=== PATIENT | male | born 1955 | race Caucasian/White ===

== ENCOUNTER 2018-07-29 14:34 | Inpatient (IN) | payer OTHER ==
--- NOTE | 2018-07-29 15:04 | EDPHY ---
H & P Stated Complaint: RUQ ABD PAIN N/V SINCE TUESDAY Time Seen by Provider: 07/29/18 15:03 HPI/ROS: CHIEF COMPLAINT: Abdominal pain, vomiting, jaundice HISTORY OF PRESENT ILLNESS: The patient presents to the ED with progressive abdominal pain, vomiting and now jaundice. The patient's symptoms began several days ago. He saw his primary care provider several days ago who felt he simply was having viral gastroenteritis. When the patient developed a jaundice today he was referred to the ED. The patient does complain of abdominal pain primarily in the right upper quadrant. He denies any melena or hematemesis. He denies prior history of abdominal surgery. He denies significant past medical history. The patient reports that his symptoms are moderate in nature. They worsened with palpation and movement. REVIEW OF SYSTEMS: A comprehensive 10 point review of systems is otherwise negative aside from elements mentioned in the history of present illness. Source: Patient - Personal History Current Tetanus Diphtheria and Acellular Pertussis (TDAP): Yes - Medical/Surgical History Hx Asthma: No Hx Chronic Respiratory Disease: No Hx Diabetes: No Hx Cardiac Disease: No Hx Renal Disease: No Hx Cirrhosis: No Hx Alcoholism: No Hx HIV/AIDS: No Hx Splenectomy or Spleen Trauma: No Other PMH: L SHOULDER SURG/R KNEE SURG - Social History Smoking Status: Never smoked - Physical Exam Exam: General Appearance: Alert, no distress Eyes: Icteric ENT, Mouth: Mucous membranes moist Respiratory: There are no retractions, lungs are clear to auscultation Cardiovascular: Regular rate and rhythm Gastrointestinal: Tenderness to palpation in the right upper quadrant Neurological: A&O, normal motor function, normal sensory exam, normal cranial nerves Skin: Warm and dry, no rashes, jaundiced Musculoskeletal: Neck is supple nontender Extremities: symmetrical, full range of motion Psychiatric: Patient is oriented X 3, there is no agitation Constitutional: Initial Vital Signs Temperature (C) 36.4 C 07/29/18 14:38 Heart Rate 77 07/29/18 14:38 Respiratory Rate 17 07/29/18 14:38 Blood Pressure 134/78 H 07/29/18 14:38 O2 Sat (%) 95 07/29/18 14:38 O2 Delivery Mode Room Air Allergies/Adverse Reactions: Sulfa (Sulfonamide Antibiotics) Allergy (Verified 07/29/18 14:38) Home Medications: Medication Instructions Recorded NK [No Known Home Meds] 07/29/18 Medical Decision Making - Diagnostics Imaging Results: Imaging Impressions Abdomen Ultrasound 07/29/18 15:28 Impression: 1. Cholelithiasis with gallbladder completely opacified with sludge and gallstones including calculi lodged in the gallbladder neck, circumferential gallbladder wall thickening, and dilated common bile duct 15 mm, consistent with acute cholecystitis. 2. Pancreas is not well visualized. Findings and recommendations discussed with Emergency Department physician, Beck Keane, at 1623 hour, 07/29/2018. Final report concurs with initial preliminary interpretation. ED Course/Re-evaluation: The patient presents to the ED which jaundice, abdominal pain and vomiting. The patient arrives and is hemodynamically stable. He has no fever or leukocytosis. The patient was noted to be visibly jaundiced. Patient did receive a IV. He received a L of normal saline. He received IV Zofran and 4 mg of morphine. The patient's laboratory studies do demonstrate an elevated bilirubin. The patient was taken for a right upper quadrant ultrasound which demonstrates cholecystitis, gallstones and common bile duct 15 mm in diameter. The patient received IV Unasyn 3gm in the IV. Consultation was made with Dr. Rui Menon from General surgery. He recommends admission to the hospitalist service with GI consultation for ERCP. The patient will need a cholecystectomy after the patient has been seen by GI. Consultation is made with Gastroenterology. The patient will be seen in consultation with Dr. Bynum. He should be npo. Consultation is made with the hospitalist service at 4:50 p.m.. The patient will be admitted by Dr. Salcido. Re-evaluated the patient again at 5:00 p.m.. He is comfortable. Informed of the plan for admission for further workup. Differential Diagnosis: Differential diagnosis considered includes cholangitis, choledocholithiasis, pancreatic cancer, obstructive biliary lesion - Data Points Laboratory Results: Laboratory Results 07/29/18 15:18 07/29/18 15:18 07/29/18 07/29/18 15: 15:18 WBC 8.35 10^3/uL 10^3/uL (3.80-9.50) RBC 4.42 10^6/uL 10^6/uL (4.40-6.38) Hgb 13.5 g/dL L g/dL (13.7-17.5) Hct 39.6 % L % (40.0-51.0) MCV 89.6 fL fL (81.5-99.8) MCH 30.5 pg pg (27.9-34.1) MCHC 34.1 g/dL g/dL (32.4-36.7) RDW 12.6 % % (11.5-15.2) Plt Count 238 10^3/uL 10^3/uL (150-400) MPV 8.8 fL fL (8.7-11.7) Neut % (Auto) 80.8 % H % (39.3-74.2) Lymph % (Auto) 8.3 % L % (15.0-45.0) Cottle % (Auto) 10.4 % % (4.5-13.0) Eos % (Auto) 0.1 % L % (0.6-7.6) Baso % (Auto) 0.2 % L % (0.3-1.7) Nucleat RBC Rel Count 0.0 % % (0.0-0.2) Absolute Neuts (auto) 6.74 10^3/uL H 10^3/uL (1.70-6.50) Absolute Lymphs (auto) 0.69 10^3/uL L 10^3/uL (1.00-3.00) Absolute Monos (auto) 0.87 10^3/uL H 10^3/uL (0.30-0.80) Absolute Eos (auto) 0.01 10^3/uL L 10^3/uL (0.03-0.40) Absolute Basos (auto) 0.02 10^3/uL 10^3/uL (0.02-0.10) Absolute Nucleated RBC 0.00 10^3/uL 10^3/uL (0-0.01) Immature Gran % 0.2 % % (0.0-1.1) Immature Gran # 0.02 10^3/uL 10^3/uL (0.00-0.10) Sodium 133 mEq/L L mEq/L (135-145) Potassium 3.6 mEq/L mEq/L (3.3-5.0) Chloride 96 mEq/L L mEq/L (97-110) Carbon Dioxide 26 mEq/l mEq/l (22-31) Anion Gap 11 mEq/L mEq/L (6-14) BUN 18 mg/dL mg/dL (7-23) Creatinine 0.9 mg/dL mg/dL (0.7-1.3) Estimated GFR > 60 Glucose 110 mg/dL H mg/dL (70-100) Calcium 9.5 mg/dL mg/dL (8.5-10.4) Total Bilirubin 7.2 mg/dL H mg/dL (0.1-1.4) Conjugated Bilirubin 6.0 mg/dL H mg/dL (0.0-0.5) Unconjugated Bilirubin 1.2 mg/dL H mg/dL (0.0-1.1) AST 123 IU/L H IU/L (17-59) ALT 277 IU/L H IU/L (21-72) Alkaline Phosphatase 305 IU/L H IU/L (38-126) Total Protein 6.7 g/dL g/dL (6.3-8.2) Albumin 3.7 g/dL g/dL (3.5-5.0) Lipase 9975 IU/L H IU/L (23-300) Medications Given: Discontinued Medications Sodium Chloride (Ns) 1,000 mls @ 0 mls/hr IV EDNOW ONE; Wide Open PRN Reason: Protocol Stop: 07/29/18 15:29 Last Admin: 07/29/18 15:39 Dose: 1,000 mls Ondansetron HCl (Zofran) 4 mg IVP EDNOW ONE Stop: 07/29/18 15:29 Last Admin: 07/29/18 15:39 Dose: 4 mg Departure - Departure Disposition: [facility] In[facility] Acute Clinical Impression: Choledocholithiasis with acute cholecystitis, Acute gallstone pancreatitis Referrals: EDDA MACIEL [Other] - As per Instructions
[2018-07-29] MEDS ORDERED: NS 1,000 ML IV ONE (15:28)
[2018-07-29] MEDS ORDERED: ONDANSETRON 4 MG/2 ML VIAL IVP ONE (15:28)
[2018-07-29 15:35] LABS: PLATELET COUNT 238 10^3/uL (150-400)
[2018-07-29] MEDS ORDERED: AMPICILLIN/SULBACTAM 3 GM in NS 100 ML IV ONE (16:17)
[2018-07-29] MEDS ORDERED: ONDANSETRON DISINTEGRATING 4 MG TAB PO PRN (17:58)
[2018-07-29] MEDS ORDERED: ONDANSETRON 4 MG/2 ML VIAL IVP PRN (17:58)
[2018-07-29] MEDS ORDERED: PROMETHAZINE HCL 25 MG/ML INJ IVP PRN (17:58)
[2018-07-29] MEDS: NS 1,000 ML IV SCH (18:19)
--- NOTE | 2018-07-29 19:41 | GHP ---
DATE OF ADMISSION: 07/29/2018 HISTORY OF PRESENT ILLNESS: The patient is a pleasant 63-year-old gentleman with no past medical history, who presents to the emergency department with jaundice. He has had some GI upset and abdominal pain over the last couple of days. He saw his primary care physician several days ago. He suggested he had a viral gastroenteritis. He says his abdominal pain is in the right upper quadrant. No melena or signs of lower or upper GI bleeding. Noticing jaundice and came into the emergency department. Imaging revealed a gallbladder full of stones with a dilated common bile duct. He had markedly elevated LFTs. The patient enjoys excellent health and exercise tolerance going for 5-hour hikes without cardiopulmonary symptoms. REVIEW OF SYSTEMS: Complete 10-point review of systems conducted. Negative except as noted in the HPI. PAST MEDICAL HISTORY: None. ALLERGIES: Sulfa. That happened when he was 7 years old. HOME MEDICATIONS: None. FAMILY HISTORY: His father has urine problems and he is in his 90s. SOCIAL HISTORY: He has wine on the weekends. 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 He is a nonsmoker. PHYSICAL EXAMINATION: VITAL SIGNS: Temp 36.4, blood pressure 134/78, pulse 77 , breathing 17 times a minute, 95% on room air. GENERAL: No acute distress. HEENT: Sclerae icteric. Oropharynx clear. Mucous membranes moist. NECK: Supple without lymphadenopathy or JVD. LUNGS: Clear to auscultation bilaterally. HEART: S1, S2. ABDOMEN: Soft, nontender. There is a Butcher sign although the patient has been medicated. LOWER EXTREMITIES: Without edema. Calves nontender. SKIN: Without rash. NEUROLOGIC: Exam is nonfocal. LABORATORY DATA: Sodium 133, potassium 3.6, chloride 96, bicarb 26, BUN 18, creatinine 0.9, glucose 110, bilirubin is 7.2, that is predominantly conjugated. AST 123, ALT 277, alkaline phosphatase 305, lipase is 9975. White count 8, hematocrit 40, platelets 238,000. Abdominal ultrasound shows cholelithiasis with the gallbladder completely opacified with stone and sludge. He has calculi lodged in the gallbladder neck with a circumferential gallbladder wall thickening. Dilated common duct at 15 mm. I discussed the case with Dr. Beck Keane. ASSESSMENT AND PLAN: A 63-year-old gentleman with choledocholithiasis, cholelithiasis, and gallstone pancreatitis. 1. Choledocholithiasis. The patient is n.p.o., received Unasyn. He will receive ERCP in the morning. 2. Cholelithiasis. The patient has a remarkable stone burden in his gallbladder. He needs a cholecystectomy. This will be performed after the ERCP. 3. Cholelithiasis. Unasyn. 4. Pancreatitis. The patient has gallstone pancreatitis. His symptoms are a little bit vague. He certainly does not have severe necrotizing pancreatitis. Make him n.p.o. and follow. 5. Prophylaxis, sequential compression devices for now. Preoperative cardiac evaluation. The patient can achieve greater than 4 METS without cardiopulmonary symptoms to the OR without further workup after intervention. DISPOSITION: Inpatient admission. /[id number]/MODL MTDD
--- NOTE | 2018-07-29 23:07 | GCON ---
DATE OF CONSULTATION: 07/29/2018 REFERRING PHYSICIAN: Todd Boucher MD REASON FOR CONSULTATION: Abdominal pain, elevated liver tests, and jaundice. Dear Dr. Boucher: Thank you very kindly for asking me to evaluate the patient in consultation for a chief complaint of abdominal pain and jaundice. He is a very pleasant and previously healthy 63-year-old male, who had a significant escalation of right-sided and epigastric abdominal pain that had originally began . He was in his usual state of health when he developed nausea, vomiting, and what he thought was a bdominal pain related to a pulled muscle from the severe retching. The event worsened, however, and he saw his doctor on . He was told he might have a viral gastroenteritis, but when he develo ped jaundice, he was brought to the emergency room today. His LFTs are elevated with both cholestasi s and transaminitis, and an ultrasound shows cholelithiasis with stones within the gallbladder neck a nd a dilated common bile duct to 15 mm. I am asked to assist with further evaluation and management. Of note, the patient denies any previous episodes of jaundice. He has had similar biliary colic-type episodes on 2 occasions in April that lasted about 5 days a piece and resolved spontaneously. He den ies any fever, chills, but has been feeling somewhat globally ill. PAST MEDICAL HISTORY: Two episodes of previous biliary colic. No other known problems. PAST SURGICAL HISTORY: Arthroscopic knee surgery and a left rotator cuff repair. MEDICATIONS ON ADMISSION: None. ALLERGIES: Sulfa. FAMILY HISTORY: Negative for pancreatic or biliary disease. 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 He is [place]. No tobacco. No alcohol. No substance a buse. His daughter is a physician in [place]. REVIEW OF SYSTEMS: CONSTITUTIONAL: General malaise, nausea, anorexia. No fever, no chills, no nigh t sweats, no weight loss. HEENT: Denies headache, visual disturbances, rhinorrhea, sore throat, or ear pain. He does note scleral icterus. PULMONARY: No cough or shortness of breath. CARDIOVASCULA R: No chest pain or palpitations. GASTROINTESTINAL: Has been for nausea and bilious vomiting. Gen eralized abdominal pain, but worse in the epigastric and the right side. Denies melena, hematochezia , constipation, or diarrhea. RHEUMATOLOGIC: Denies joint pain, swelling, or warmth. DERMATOLOGIC: Significant for jaundice, but he denies pruritus. NEUROLOGIC: No focal motor weakness, seizures, o r falls. HEMATOLOGIC: No bruising or epistaxis. LYMPH: Denies any adenopathy. PHYSICAL EXAM: VITAL SIGNS: Blood pressure is 114/56 with a pulse of 73, respirations are 16, oxyge nation is 93% on room air, temperature max is 36.8. GENERAL: Jaundice-appearing male but in no acut e distress. Alert, polite, and able to provide his own history. He says he feels much more comforta ble after receiving morphine. HEENT: Normocephalic, atraumatic. Sclerae are anicteric. Oropharynx is clear, but there is palatal jaundice. NECK: Supple. No adenopathy. No carotid bruit. PULMONA RY: Clear to auscultation bilaterally. CARDIOVASCULAR: Regular rate and rhythm without murmur, rub or gallop. GI: The abdomen is tender in the epigastrium and in the right upper quadrant. There is some mild voluntary guarding with deep palpation. No obvious rebound. There is a subtle, but I thi nk real Butcher sign. No ascites. No abdominal bruit. RHEUMATOLOGIC: No joint tenderness, warmth, or swelling. No joint deformity. DERMATOLOGIC: Significant for jaundice. NEURO: Alert to person, place, and time. Cranial nerves normal. Motor nonfocal. DATA: Includes white blood count of 8.3 with a hematocrit of 39.6, platelets are 238. AST is 123, A LT is 277, alkaline phosphatase is 305, total bilirubin 7.2 with a conjugated of 6.0, lipase is 9975, total protein 6.7, albumin 3.7, creatinine 0.9. Sodium 133, potassium 3.6, chloride 96, bicarbonate 26. IMAGING: Includes an abdominal ultrasound on July 29, 2018. This shows cholelithiasis with gallb ladder wall thickening. There are stones lodged in the gallbladder neck. The common bile duct is 15 mm, but without choledocholithiasis noted. The liver is homogeneous without focal lesion. The main portal vein is patent. There is no note of intrahepatic biliary ductal dilatation. The pancreas is not well visualized. IMPRESSION: 1. Acute pancreatitis, highly likely to be gallstone related. 2. Common bile duct obstruction. 3. Elevated liver tests with both cholestasis and transaminitis, likely related to bilirubin obstruc tion and acute cholecystitis. 4. Cholelithiasis, which appears to be complicated by cholecystitis. 5. Nausea with vomiting. RECOMMENDATIONS: 1. N.p.o. 2. Aggressive IV fluid resuscitation. 3. Prophylactic antibiotics. 4. A.m. LFTs and lipase. Will likely need ERCP within the next day, or possibly 2 depending on his clinical progress. If he worsens with his biliary obstruction, and his pancreatitis is failing to im prove, he will need more urgent ERCP. 5. If his liver tests and pancreatitis are improving steadily, we will likely give a short bit of ti me for the pancreatitis to cool down and proceed with ERCP on Tuesday morning. The timing of the ERCP will really be predicated on how he does clinically. 6. He will ultimately need cholecystectomy after clearance of the common bile duct. 7. Other possibilities for biliary obstruction that are not stone related are in the differential, s uch as biliary stricturing or pancreatic malignancy, but I think these are less likely given the clin ica presentation of pain, biliary colic, and the previous episodes in April. The ERCP should also be able to confirm that the problem is choledocholithiasis. If, however, the ERCP is performed and brownlee s not reveal a stone or obvious cause of obstruction, then CT imaging can be considered. Further recommendations to follow. /[id number]/MODL
[2018-07-29] MEDS: AMPICILLIN/SULBACTAM 3 GM in NS 100 ML IV SCH (23:11)
[2018-07-30] MEDS: NS 1,000 ML IV SCH ×3 (00:10→15:16)
[2018-07-30] MEDS: AMPICILLIN/SULBACTAM 3 GM in NS 100 ML IV SCH ×5 (00:10→23:18)
--- NOTE | 2018-07-30 00:13 | PDCONSULT ---
Ste[employer]er Filling Note: Surgery consult 63 y/o male with several day history of abd pain, N/V presented to the ED today and was found to have elevated liver enzymes and jaundice. Ultrasound showed gallstones and dilated CBD and dilated intrahepatic ducts. He has had two similar episodes in the past year that have resolved spontaneously. His pain resolved after receiving morphine in the ED. 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
[2018-07-30 05:24] LABS: PLATELET COUNT 224 10^3/uL (150-400)
[2018-07-30 05:29] LABS: INR 1.1 (0.83-1.16); PROTIME(PATIENT) 14.4 SEC (12.0-15.0)
--- NOTE | 2018-07-30 07:26 | PDMN ---
Medical Necessity Medical necessity: Pt meets inpt criteria per MD order and [facility] [place] M-[id number], Pancreatitis, with Common Duct Stone. 63 y/o admitted w/choledocholithiasis, cholelithiasis complicated by cholecystitis, gallstone pancreatitis. Abd ultrasound shows gallstones w/dilatation of common bile duct/intrahepatic ducts , lipase 9975 on admission, ERCP planned for AM, cholecystectomy pending. Anticipate>2MN for ongoing eval/management of above.
--- NOTE | 2018-07-30 09:22 | HOSPPROG ---
Hospitalist Progress Note Assessment/Plan: 63 yo M w gallstone pancreatitis, cholelithiasis, presumed choledocholithiasis choledocholithiasis: stone not seen but scenario c/w this dx ercp today or tomorrow continue amp/sulbactam pancreatitis: presumed 2/2 PD obstruction from gallstone/edema Npo X ICE CHIPS pain better may be reasonable to wait on ercp cholelithiasis: remarkable stone burden cholecystectomy on this admit hyponatremia: improved proph: scd's Subjective: case d/w dr jackson. less pain. some nausea Objective: Vital Signs Temp Pulse Resp BP Pulse Ox 36.7 C 75 16 102/52 L 95 07/30/18 04:00 07/30/18 08:00 07/30/18 08:00 07/30/18 08:00 07/30/18 08:00 Laboratory Results 07/30/18 05:07 07/30/18 05:07 07/29/18 07/30/18 07/31/18 05:59 05:59 05:59 Intake Total 1852 Balance 1852 PT 14.4 SEC (12.0-15.0) 07/30/18 05:07 INR 1.10 (0.83-1.16) 07/30/18 05:07 - Physical Exam Constitutional: no apparent distress, appears nourished Eyes: PERRL, anicteric sclera Ears, Nose, Mouth, Throat: moist mucous membranes, hearing normal Cardiovascular: regular rate and rhythym, no murmur, rub, or gallop Respiratory: no respiratory distress, no rales or rhonchi Gastrointestinal: No normoactive bowel sounds, No guarding, No rebound, No distension Genitourinary: no bladder fullness, No palacios in urethra Skin: warm, normal color Musculoskeletal: full muscle strength, no muscle tenderness Neurologic: AAOx3 ICD10 Worksheet Patient Problems: Problems Problem Status Onset Acute gallstone pancreatitis Acute Choledocholithiasis with acute cholecystitis Acute
--- NOTE | 2018-07-30 10:51 | SOAPPROG ---
SOAP Progress Note Assessment/Plan: Assessment: 1. RUQ pain 2. GS pancreatitis 3. Biliary obstruction 4. Cholelithiasis with cholecystitis Plan: 1. Ice chips and sips ok 2. Continue Abx coverage 3. AM CBC, CMP, Lipase 4. ERCP tomorrow at 11AM 07/30/18 10:49 Subjective: CC: less abdominal pain. No N/V. No fever. Feels a bit swollen in his hands. Denies SOB Objective: Vital Signs Temp Pulse Resp BP Pulse Ox 36.7 C 75 16 102/52 L 95 07/30/18 04:00 07/30/18 08:00 07/30/18 08:00 07/30/18 08:00 07/30/18 08:00 Laboratory Results 07/30/18 05:07 07/30/18 05:07 07/29/18 07/30/18 07/31/18 05:59 05:59 05:59 Intake Total 1852 Balance 1852 PT 14.4 SEC (12.0-15.0) 07/30/18 05:07 INR 1.10 (0.83-1.16) 07/30/18 05:07 Physical Exam - Physical Exam General Appearance: WD/WN, alert, no apparent distress EENT: normal ENT inspection Neck: supple Respiratory: lungs clear, normal breath sounds Cardiac/Chest: regular rate, rhythm, No systolic murmur Abdomen: normal bowel sounds, non-tender, soft, No distended, No guarding, No rebound Skin: jaundice Lymphatic: no adenopathy Neuro/Psych: normal mood/affect, oriented x 3 ICD10 Worksheet Patient Problems: Problems Problem Status Onset Acute gallstone pancreatitis Acute Choledocholithiasis with acute cholecystitis Acute
--- NOTE | 2018-07-30 15:23 | ASMTCMCOM ---
CM Note CM Note Notes: 63yo male admitted for Jaundice, Choledocholithiasis w/Cholecystitis, Gallstone pancreatitis. Patient lives with his and works at [employer]. To have an ERCP on Tuesday. May not have discharge needs. Date Signed: 07/30/2018 03:21 PM Electronically Signed By:Sandy Tyson LCSW
[2018-07-31 04:51] LABS: PLATELET COUNT 254 10^3/uL (150-400)
[2018-07-31] MEDS: AMPICILLIN/SULBACTAM 3 GM in NS 100 ML IV SCH ×4 (06:59→23:12)
[2018-07-31] MEDS: NS 1,000 ML IV SCH (07:00)
--- NOTE | 2018-07-31 09:14 | HOSPPROG ---
Hospitalist Progress Note Assessment/Plan: #Gallstone pancreatitis/choledocholithiasis -MRCP pending, if neg consider lap choley. ERCP if positive #Hypoglycemia: due to NPO, add D5 #Hyperbilirubinemia: due to #1 #Diet: NPO, add D5 Inpatient admission for IV abx, ERCP, surgery Discussed with Dr. Menon Subjective: min abd pain today Objective: Vital Signs Temp Pulse Resp BP Pulse Ox 36.4 C 72 15 103/58 L 97 07/31/18 07:51 07/31/18 07:51 07/31/18 07:51 07/31/18 07:51 07/31/18 07:51 Laboratory Results 07/31/18 04:25 07/31/18 04:25 07/30/18 07/31/18 08/01/18 05:59 05:59 05:59 Intake Total 1852 1076 Balance 1852 1076 PT 14.4 SEC (12.0-15.0) 07/30/18 05:07 INR 1.10 (0.83-1.16) 07/30/18 05:07 - Time Spent With Patient Time Spent with Patient: greater than 35 minutes Time Spent with Patient: Greater than 35 minutes spent on this patients care, greater than 50% of time spent counseling, educating, and coordinating care regarding the above mentioned plan. - Physical Exam Constitutional: no apparent distress Eyes: PERRL Ears, Nose, Mouth, Throat: moist mucous membranes Cardiovascular: regular rate and rhythym Respiratory: no respiratory distress Gastrointestinal: normoactive bowel sounds, tenderness (min RUQ TTP), No guarding, No rebound, No distension Genitourinary: no bladder fullness Skin: warm Musculoskeletal: full muscle strength Neurologic: AAOx3, CN II-XII Intact Psychiatric: interacting appropriately ICD10 Worksheet Patient Problems: Problems Problem Status Onset Acute gallstone pancreatitis Acute Choledocholithiasis with acute cholecystitis Acute
[2018-07-31] MEDS ORDERED: D50W 25 GM/50 ML SYR IVP PRN (11:53)
[2018-07-31] MEDS ORDERED: D5W NS 1,000 ML IV SCH (12:00)
--- NOTE | 2018-07-31 14:25 | SOAPPROG ---
[facility] Progress Note Assessment/Plan: Assessment: choledocholithiasis/awaiting ERCP-delayed scheduling clinically improved with declining bili Plan: MRCP, if neg consider lap shanita/IOC, if pos await ERCP 07/31/18 14:24 Subjective: had several short attacks of pain yesterday/feeling better today Objective: bili down to 2.8 Vital Signs Temp Pulse Resp BP Pulse Ox 36.4 C 72 15 103/58 L 97 07/31/18 07:51 07/31/18 07:51 07/31/18 07:51 07/31/18 07:51 07/31/18 07:51 Laboratory Results 07/31/18 04:25 07/31/18 04:25 07/30/18 07/31/18 08/01/18 05:59 05:59 05:59 Intake Total 1852 1076 Balance 1852 1076 PT 14.4 SEC (12.0-15.0) 07/30/18 05:07 INR 1.10 (0.83-1.16) 07/30/18 05:07 - Pending Discharge Pending Discharge Within 24 Hours: No Pending Discharge Within 48 Hours: No Physical Exam - Physical Exam EENT: other (resolving scleral icterus) Abdomen: non-tender, soft ICD10 Worksheet Patient Problems: Problems Problem Status Onset Acute gallstone pancreatitis Acute Choledocholithiasis with acute cholecystitis Acute
[2018-07-31] MEDS ORDERED: GLUCAGON HCL 1 MG VIAL ONE (16:14)
[2018-07-31] MEDS ORDERED: IOTHALAMATE MEG (CONRAY) 50 ML VIAL IV ONE (16:14)
[2018-07-31] MEDS ORDERED: fentaNYL 100 MCG/2 ML INJ ONE (16:55)
[2018-07-31] MEDS ORDERED: PROPOFOL/EMULSION 500 MG/50 ML BOTTLE IV ONE (16:56)
[2018-07-31] MEDS ORDERED: INDOMETHACIN 50 MG SUPP PR ONE ×2 (17:01→17:04)
[2018-07-31] MEDS ORDERED: ALBUTEROL 3 ML DEYVIAL IH PRN (17:39)
[2018-07-31] MEDS ORDERED: DEXAMETHASONE 4 MG/ML VIAL IVP PRN (17:39)
[2018-07-31] MEDS ORDERED: fentaNYL 100 MCG/2 ML INJ IVP PRN (17:39)
[2018-07-31] MEDS ORDERED: LABETALOL HCL 5 MG/ML 20 ML MDV IVP PRN (17:39)
[2018-07-31] MEDS ORDERED: MEPERIDINE 25 MG/0.5 ML AMP IVP PRN (17:39)
[2018-07-31] MEDS ORDERED: NALOXONE HCL 0.4 MG/ML INJ IVP PRN (17:39)
[2018-07-31] MEDS ORDERED: LR 500 ML IV PRN (17:39)
--- NOTE | 2018-07-31 17:44 | PDANEPAE ---
ANE History of Present Illness 63 year old male with gallstone pancreatitis for ERCP. ANE Past Medical History - Pulmonary History Hx Oxygen in Use at Home: No Hx Sleep Apnea: No Sleep Apnea Screening Result - Last Documented: Negative - Endocrine History Hx Diabetes: No ANE Review of Systems Review of systems is: negative Review of Systems: ANE Patient History - Allergies Allergies/Adverse Reactions: Sulfa (Sulfonamide Antibiotics) Allergy (Verified 07/29/18 14:38) - Home Medications Home Medications: NK [No Known Home Meds] 07/29/18 [Last Taken Unknown] - NPO status NPO Since - Liquids (Date): 07/30/18 NPO Since - Liquids (Time): 23:55 NPO Since - Solids (Date): 07/29/18 NPO Since - Solids (Time): 21:00 - Smoking Hx Smoking Status: Never smoked ANE Labs/Vital Signs - Labs Result Diagrams: 07/31/18 04:25 07/31/18 04:25 - Vital Signs Blood Pressure: 103/58 Heart Rate: 72 Respiratory Rate: 15 O2 Sat (%): 97 Height: 182.88 cm Weight: 82.554 kg ANE Physical Exam - Airway Neck exam: FROM Mallampati Score: Class 2 Mouth exam: normal dental/mouth exam - Pulmonary Pulmonary: no respiratory distress - Cardiovascular Cardiovascular: regular rate and rhythym - ASA Status ASA Status: I (anterior anatomy, plan glidescope for intubation.) ANE Anesthesia Plan Anesthesia Plan: general endotracheal anesthesia
--- NOTE | 2018-07-31 18:00 | GIREPORT ---
[facility] - Endoscopy Department Patient Name: Ok Perez Procedure Date: 07/31/2018 5:03 PM Patient Type: Inpatient Attending MD/ ER Physician: Khris Bynum MD Procedure: ERCP Indications: Common bile duct stone(s) Providers: Khris Bynum MD Medicines: General Anesthesia, Unasyn 1.5 g IV, Indomethacin 100 mg TN Complications: No immediate complications. Description of Procedure: After obtaining informed consent, the scope was passed under direct vis ion. Throughout the procedure, the patient's blood pressure, pulse, and oxyg en saturations were monitored continuously. The Duodenalscope was introduc ed through the mouth, and advanced to the duodenum and used to inject cont rast into the bile duct. The ERCP was accomplished without difficulty. The patient tolerated the procedure well. The total fluoroscopy exposure ti me was 2 minutes and 59 seconds. Findings: The it infrastructure project manager film was normal. The esophagus was successfully intubated und er direct vision. The scope was advanced from the mouth to the duodenum. T he pharynx, larynx and associated structures, as well as the upper GI trac t, were normal. The major papilla was bulging. The bile duct was deeply cannulated with the short-nosed traction sphincterotome. Contrast was injected. I personally interpreted the bile duct images. There was bris k flow of contrast through the ducts. Image quality was excellent. Contra st extended to the bifurcation. The common bile duct contained three stone s, the largest of which was 8 mm in diameter. The entire biliary tree was diffusely dilated, with a stone causing an obstruction. The largest arjun meter was 15 mm. A 0.035 inch straight standard wire was passed into the bili gila tree. A 12 mm biliary sphincterotomy was made with a monofilament short nose sphincterotome using ERBE electrocautery. There was no post-sphincterot kajal bleeding. The biliary tree was swept with a 15 mm balloon starting at t he bifurcation. Sludge was swept from the duct. Many stones were removed. No stones remained. Estimated Blood Loss: Estimated blood loss: none. Post Op Diagnosis: - The major papilla appeared to be bulging. - The entire biliary tree was dilated, with a stone causing an obstruct ion. - Choledocholithiasis was found. Complete removal was accomplished by biliary sphincterotomy and balloon extraction. - A biliary sphincterotomy was performed. - The biliary tree was swept. Recommendation: - Clear liquid diet. - NPO after midnight. - Return patient to [facility] for [facility] care. - Watch for pancreatitis, bleeding, perforation, and cholangitis. - Check liver enzymes (AST, ALT, alkaline phosphatase, bilirubin) in th e morning. - Check lipase in the morning. - Check hemogram with white blood cell count and platelets in the morni ng. - Avoid aspirin and nonsteroidal anti-inflammatory medicines for 3 days . - Surgery tomorrow as planned for cholecystectomy. - Continue antibiotics for now. - Thank you for allowing me to be involved in the care of your patient. Attending Participation: I personally performed the entire procedure without the assistance of a fellow, resident or surg ical tutoring assistant. Khris Bynum MD Khris Bynum MD 07/31/2018 5:59:18 PM This report has been signed electronicallyDavid MD Misa Number of Addenda: 0 Note Initiated On: 07/31/2018 5:03 PM [email or web address]
[2018-08-01] MEDS: AMPICILLIN/SULBACTAM 3 GM in NS 100 ML IV SCH ×3 (05:37→18:40)
--- NOTE | 2018-08-01 09:16 | PDCONSULT ---
Director Of Health Education Note: Ok is resting comfortably post ERCP/mild sore throat Labs: lipase wnl bili 1.7 wbc 5.6 HCT 35% MRCP/ERCP reviewed Imp: choledocholithiasis with resoving pancreatitis post ERCP Rec: lap shanita later today/if no signs of infection will stop Unasyn post op we discussed surgery, expected recovery and physiology of the biliary- pancreatic system in general informed consent was obtained Tamara Menon MD, FACS
--- NOTE | 2018-08-01 11:58 | HOSPPROG ---
Hospitalist Progress Note Assessment/Plan: #Gallstone pancreatitis/choledocholithiasis -MRCP showing cholecystis. s/p ERCP. Choley planned for this afternoonending, if neg consider lap choley. ERCP if positive #Hypoglycemia: resolved with D5 #Hyperbilirubinemia: due to above, trending down #Diet: NPO, add D5 Inpatient admission for IV abx, ERCP, surgery Discussed with Dr. Menon Subjective: no abdominal pain Objective: Vital Signs Temp Pulse Resp BP Pulse Ox 36.4 C 66 13 98/50 L 95 08/01/18 07:30 08/01/18 07:30 08/01/18 07:30 08/01/18 07:30 08/01/18 07:30 Laboratory Results 08/01/18 04:18 08/01/18 04:18 07/31/18 08/01/18 08/02/18 05:59 05:59 05:59 Intake Total 2276 Balance 2276 PT 14.4 SEC (12.0-15.0) 07/30/18 05:07 INR 1.10 (0.83-1.16) 07/30/18 05:07 - Time Spent With Patient Time Spent with Patient: greater than 35 minutes Time Spent with Patient: Greater than 35 minutes spent on this patients care, greater than 50% of time spent counseling, educating, and coordinating care regarding the above mentioned plan. - Physical Exam Constitutional: no apparent distress Eyes: PERRL Ears, Nose, Mouth, Throat: moist mucous membranes Cardiovascular: regular rate and rhythym Respiratory: no respiratory distress Gastrointestinal: normoactive bowel sounds, No tenderness Skin: warm Neurologic: AAOx3, CN II-XII Intact Psychiatric: interacting appropriately ICD10 Worksheet Patient Problems: Problems Problem Status Onset Acute gallstone pancreatitis Acute Choledocholithiasis with acute cholecystitis Acute
[2018-08-01] MEDS ORDERED: BUPIVACAINE 0.25% 30 ML SDV ONE ×2 (13:49→16:44)
[2018-08-01] MEDS ORDERED: IOTHALAMATE MEG (CONRAY) 50 ML VIAL IV ONE (13:49)
[2018-08-01] MEDS ORDERED: LR 1,000 ML IV ONE ×2 (13:50→14:26)
--- NOTE | 2018-08-01 13:58 | PDANEPAE ---
ANE Past Medical History - Pulmonary History Hx Oxygen in Use at Home: No Hx Sleep Apnea: No Sleep Apnea Screening Result - Last Documented: Negative - Endocrine History Hx Diabetes: No ANE Review of Systems Review of Systems: ANE Patient History - Allergies Allergies/Adverse Reactions: Sulfa (Sulfonamide Antibiotics) Allergy (Verified 07/29/18 14:38) - Home Medications Home Medications: NK [No Known Home Meds] 07/29/18 [Last Taken Unknown] - NPO status NPO Since - Liquids (Date): 08/01/18 NPO Since - Liquids (Time): 06:00 NPO Since - Solids (Date): 08/01/18 NPO Since - Solids (Time): 06:00 - Smoking Hx Smoking Status: Never smoked ANE Labs/Vital Signs - Labs Result Diagrams: 08/01/18 04:18 08/01/18 04:18 - Vital Signs Blood Pressure: 106/52 Heart Rate: 58 Respiratory Rate: 14 O2 Sat (%): 95 Height: 182.88 cm Weight: 82.554 kg ANE Physical Exam - Airway Mallampati Score: Class 2 - ASA Status ASA Status: I ANE Anesthesia Plan Anesthesia Plan: general endotracheal anesthesia
[2018-08-01] MEDS ORDERED: MIDAZOLAM 2 MG/2 ML VIAL ONE (14:02)
[2018-08-01] MEDS ORDERED: PROPOFOL 200 MG/20 ML VIAL ONE (14:03)
[2018-08-01] MEDS ORDERED: fentaNYL 100 MCG/2 ML INJ ONE ×2 (14:03→17:29)
[2018-08-01] MEDS ORDERED: ONDANSETRON 4 MG/2 ML VIAL ONE (14:04)
[2018-08-01] MEDS ORDERED: METOCLOPRAMIDE 10 MG/2 ML VIAL ONE (14:04)
[2018-08-01] MEDS ORDERED: ROCURONIUM 50 MG/5 ML VIAL ONE ×2 (14:04→15:28)
[2018-08-01] MEDS ORDERED: SUGAMMADEX SODIUM 200 MG/2 ML VIAL IVP ONE (16:41)
[2018-08-01] MEDS ORDERED: ROPIVACAINE 0.2% 550 MG in WATER FOR INJECTION,STERILE 275 ML, PUMP SET 1 EA NB SCH (17:00)
[2018-08-01] MEDS ORDERED: BUPIVACAINE 0.25% 270 ML in PUMP SET 1 EA NB SCH (17:00)
[2018-08-01] MEDS ORDERED: NALOXONE HCL 0.4 MG/ML INJ IVP PRN (17:18)
[2018-08-01] MEDS ORDERED: LR 500 ML IV PRN (17:18)
[2018-08-01] MEDS ORDERED: PROMETHAZINE HCL 25 MG/ML INJ IVP PRN (17:18)
[2018-08-01] MEDS ORDERED: HYDROCODONE/APAP 5/325 TAB PO PRN (17:18)
[2018-08-01] MEDS ORDERED: ONDANSETRON 4 MG/2 ML VIAL IVP PRN (17:18)
[2018-08-01] MEDS ORDERED: MEPERIDINE 25 MG/0.5 ML AMP IVP PRN (17:18)
--- NOTE | 2018-08-01 17:20 | POSTANESTH ---
Post Anesthetic Evaluation Cardiovascular Status: Normal, Stable Respiratory Status: Normal, Stable Level of Consciousness/Mental Status: Can Participate in Eval Pain Control: Adequate, Prn Tx Ordered Nausea/Vomiting Control: Adequate, Prn Tx Ordered Complications Possibly Related to Anesthesia: None Noted
--- NOTE | 2018-08-01 17:23 | POSTOPPROG ---
Post Op Note Date of Operation: 08/01/18 Surgeon: Rui Menon (, FACS) Anesthesiologist: Pavel Bagley MD Anesthesia: GET(General Endotracheal) Pre-op Diagnosis: cholelithiasis/chronic cholecystitis Procedure: lap shanita converted to open with cholangiograms Findings: acute on chronic cholecystitis/8-10 mm cystic duct Inf/Abcess present in the surg proc area at time of surgery?: Yes Depth: Organ Space Specimen(s): bile culture, gallbladder
[2018-08-01] MEDS: fentaNYL 100 MCG/2 ML INJ IVP PRN ×2 (17:32→17:44)
[2018-08-01] MEDS: D5W 1/2 NS W/ 20 KCl/L 1,000 ML IV SCH (18:42)
[2018-08-02] MEDS: AMPICILLIN/SULBACTAM 3 GM in NS 100 ML IV SCH ×5 (00:17→23:59)
--- NOTE | 2018-08-02 05:09 | GOP ---
DATE OF OPERATION: SURGEON: Rui Menon MD, [facility] ANESTHESIA: General endotracheal. ANESTHESIOLOGIST: Pavel Bagley MD. PREOPERATIVE DIAGNOSIS: 1. Gallstone pancreatitis. 2. Acute and chronic cholelithiasis and cholecystitis. 3. Choledocholithiasis status post ERCP. POSTOPERATIVE DIAGNOSIS: 1. Gallstone pancreatitis. 2. Acute and chronic cholelithiasis and cholecystitis. 3. Choledocholithiasis status post ERCP. PROCEDURE PERFORMED: Laparoscopic converted to open cholecystectomy with operative cholangiography. . FINDINGS: Markedly inflamed gallbladder with extensive distortion of anatomic structures, inability to confirm the cystic duct on laparoscopic cholangiography and converted to open for confirmation of anatomy. ESTIMATED BLOOD LOSS: 250 mL. DESCRIPTION OF PROCEDURE: After informed consent was obtained, the patient was brought to the operating room and placed under general anesthesia. The abdomen was prepped and draped in the usual fashion. Before proceeding, a time-out and identification of the patient was performed. 0.25% Marcaine was used to infiltrate all incision sites. A transverse incision was made below the umbilicus and carried through the skin and subcutaneous tissues. Hemostasis was secured with cautery. Ventral traction was applied to the abdominal wall and a Veress needle was introduced into the peritoneal cavity. Position was confirmed by the saline infusion and a pneumoperitoneum was established with CO2 gas to a pressure of 15 mmHg. The Veress needle was withdrawn and replaced with a 12 mm bladeless trocar. The peritoneal cavity was visualized with a 5 mm 30 degree scope. The falciform ligament was noted to be in an aberrant position to the right of midline and coursing right to the edge of the gallbladder fossa rather than the normal position between the left medial and lateral segments of the liver. This, however did not interfere with dissection. Additional 5 mm ports were placed, the 1st to the right of the falciform ligament in the right upper quadrant. The other 2 in the right upper quadrant midclavicular line and anterior axillary line. This allowed introduction of atraumatic grasping forceps. The gallbladder was so distended and chronically inflamed that it could not be grasped. A decompressive needle was used to aspirate 20 mL of dark green cloudy bile from the gallbladder so that it could be grasped with a laparoscopic grasper. A specimen of the bile was submitted for culture and sensitivity. The infundibulum of the gallbladder was difficult to identify. The duodenum and omental adhesions were swept off the gallbladder, some of which were acute, others more chronic, requiring dissection with the Harmonic Scalpel. Blood loss at 1 point, became concerning, though I was able to control the bleeding laparoscopically and ultimately identified the cystic duct between the infundibulum of the gallbladder and the common bile duct. The cystic artery being secured, the cystic duct measured approximately 8-10 mm in diameter and was very thick walled. A 14-gauge Angiocath was introduced in the right upper quadrant and a taut cholangiogram catheter introduced into the peritoneal cavity. The cystic duct was incised. The taut cholangiogram catheter was passed into the duct and it was secured with a cholangiogram clamp. Cholangiograms with full-strength Conray revealed distal filling of the common bile duct, but with no proximal filling, thereby being unable to confirm the anatomy. There was, however, no filling defect distally and contrast flowed freely into the duodenum. At this point, I elected to convert to an open procedure to confirm the anatomy and complete the operation. The 2 upper abdominal incisions were connected with a single incision and dissection carried out through the layers of the abdominal wall until the peritoneal cavity was entered and explored. The Omni-Tract retractor was used to facilitate exposure. The gallbladder was then taken down from the top, it from the underlying liver with cautery dissection. There was no anatomic plane between these 2 structures and moderate bleeding again occurred from the liver bed. After the gallbladder was detached, it was dissected down to the cystic duct confirming its prior anatomy. The cystic ductotomy was again cannulated with a taut cholangiogram catheter and cholangiograms obtained with full-strength Conray. There was proximal and distal filling of the common bile duct once again confirming anatomy. There were no obvious retained stones. The taut cholangiogram catheter was removed from the cystic duct and the cystic duct stump was secured with a single firing of the 35 mm Endo-RHONDA stapler to traverse this enlarged duct. Cystic artery clips appeared intact. The gallbladder fossa was cauterized for hemostasis and a sheet of Surgicel placed over the gallbladder fossa. Subsequently, the retractors were removed. The remaining right upper quadrant organs were able to come in contact with the liver edge. The operative field appeared hemostatic. The peritoneum and posterior rectus sheath were closed with continuous running 2-0 Vicryl suture. Anterior fascia was closed with 0 PDS suture. Bilateral subcu On-Q pump catheters were passed adjacent to the incision. Subsequently, the fascial defect of the umbilicus was repaired with interrupted 0 PDS suture. Subcutaneous tissues were closed with 3-0 Vicryl suture. The skin of the primary incision was closed with pretty. The remaining 2 port sites were closed with 4-0 Monocryl suture in a subcuticular fashion. The patient was extubated and brought to the recovery room in satisfactory condition. Needle, sponge, and instrument count correct. COMPLICATIONS: None. /[id number]/MODL MTDD
--- NOTE | 2018-08-02 09:07 | SOAPPROG ---
SOAP Progress Note Assessment/Plan: Assessment: choledocholithiasis/awaiting ERCP-delayed scheduling clinically improved with declining bili Plan: MRCP, if neg consider lap shanita/IOC, if pos await ERCP 07/31/18 14:24 Subjective: resting comfortably/denies nausea pain 12/10 Objective: Vital Signs Temp Pulse Resp BP Pulse Ox 36.7 C 67 16 114/65 94 08/02/18 08:00 08/02/18 08:00 08/02/18 08:00 08/02/18 08:00 08/02/18 08:00 Microbiology 08/01/18 14:48 Gram Stain - Final Gallbladder - Eswab Laboratory Results 08/02/18 04:35 08/02/18 04:35 08/01/18 08/02/18 08/03/18 05:59 05:59 05:59 Intake Total 2276 1950 Output Total 250 Balance 2276 1700 PT 14.4 SEC (12.0-15.0) 07/30/18 05:07 INR 1.10 (0.83-1.16) 07/30/18 05:07 Physical Exam - Physical Exam General Appearance: no apparent distress Abdomen: soft, distended Skin: warm/dry ICD10 Worksheet Patient Problems: Problems Problem Status Onset Acute gallstone pancreatitis Acute Choledocholithiasis with acute cholecystitis Acute
--- NOTE | 2018-08-02 09:10 | HOSPPROG ---
Hospitalist Progress Note Assessment/Plan: #Gallstone pancreatitis/choledocholithiasis -MRCP showing cholecystis. s/p ERCP. Converted to open choley. Gram+ cocci on culture; narrow abx on these results. Afebrile, no leukocytosis. #Hypoglycemia: resolved, now eating #Hyperbilirubinemia: due to above, trending down #Diet:ADAT Inpatient admission for serial abdominal exams, IV abx Discussed with Dr. Menon Subjective: no pain, not passing much flatus Objective: Vital Signs Temp Pulse Resp BP Pulse Ox 36.7 C 67 16 114/65 94 08/02/18 08:00 08/02/18 08:00 08/02/18 08:00 08/02/18 08:00 08/02/18 08:00 Microbiology 08/01/18 14:48 Gram Stain - Final Gallbladder - Eswab Laboratory Results 08/02/18 04:35 08/02/18 04:35 08/01/18 08/02/18 08/03/18 05:59 05:59 05:59 Intake Total 2276 1950 Output Total 250 Balance 2276 1700 PT 14.4 SEC (12.0-15.0) 07/30/18 05:07 INR 1.10 (0.83-1.16) 07/30/18 05:07 - Time Spent With Patient Time Spent with Patient: greater than 35 minutes Time Spent with Patient: Greater than 35 minutes spent on this patients care, greater than 50% of time spent counseling, educating, and coordinating care regarding the above mentioned plan. - Physical Exam Constitutional: no apparent distress Eyes: PERRL Ears, Nose, Mouth, Throat: moist mucous membranes Cardiovascular: regular rate and rhythym Respiratory: no respiratory distress Gastrointestinal: normoactive bowel sounds, soft, non-tender abdomen, No distension Genitourinary: no bladder fullness Skin: warm Musculoskeletal: full muscle strength Neurologic: AAOx3, CN II-XII Intact ICD10 Worksheet Patient Problems: Problems Problem Status Onset Acute gallstone pancreatitis Acute Choledocholithiasis with acute cholecystitis Acute
[2018-08-02] MEDS: ACETAMINOPHEN 325 MG TAB PO PRN ×3 (09:50→21:08)
[2018-08-02] MEDS: D5W 1/2 NS W/ 20 KCl/L 1,000 ML IV SCH (09:50)
[2018-08-02] MEDS: ENOXAPARIN 40 MG/0.4 ML SYR SC SCH (09:50)
--- NOTE | 2018-08-02 16:01 | ASMTCMCOM ---
CM Note CM Note Notes: After reviewing pts chart. The plan remains the same. Pt will d/c independent when medically stable. No therapies ordered at this time. CM available for changes. Plan: Independent Date Signed: 08/02/2018 04:01 PM Electronically Signed By:MIGUEL ANGEL Barkley
[2018-08-03] MEDS: AMPICILLIN/SULBACTAM 3 GM in NS 100 ML IV SCH ×4 (05:08→23:33)
[2018-08-03] MEDS: ACETAMINOPHEN 325 MG TAB PO PRN (05:54)
--- NOTE | 2018-08-03 07:03 | SOAPPROG ---
SOAP Progress Note Assessment/Plan: Assessment: choledocholithiasis/chronic and acute cholecystitis s/p ERCP, lap shanita post op ileus Plan: continue Unasyn/stop if cultures remain negative tomorrow discussed diet and activity 07/31/18 14:24 08/03/18 07:00 Subjective: no BM or flatus/has not taken narcotics past 2 days reports dry cough Objective: Vital Signs Temp Pulse Resp BP Pulse Ox 36.8 C 74 16 115/63 95 08/03/18 04:00 08/03/18 04:00 08/03/18 04:00 08/03/18 04:00 08/03/18 04:00 Microbiology 08/01/18 14:48 Gram Stain - Final Gallbladder - Eswab Laboratory Results 08/03/18 04:45 08/02/18 04:35 08/02/18 08/03/18 08/04/18 05:59 05:59 05:59 Intake Total 1950 Output Total 250 Balance 1700 PT 14.4 SEC (12.0-15.0) 07/30/18 05:07 INR 1.10 (0.83-1.16) 07/30/18 05:07 - Pending Discharge Pending Discharge Within 24 Hours: Yes Pending Discharge Date: 08/04/18 Pending Discharge Time: 11:00 Physical Exam - Physical Exam General Appearance: alert, no apparent distress Respiratory: lungs clear, normal breath sounds, decreased breath sounds Cardiac/Chest: regular rate, rhythm Abdomen: soft, distended, other (dressing dry/On Q functioning) ICD10 Worksheet Patient Problems: Problems Problem Status Onset Acute gallstone pancreatitis Acute Choledocholithiasis with acute cholecystitis Acute
[2018-08-03] MEDS: ENOXAPARIN 40 MG/0.4 ML SYR SC SCH (09:58)
--- NOTE | 2018-08-03 11:07 | HOSPPROG ---
Hospitalist Progress Note Assessment/Plan: #Gallstone pancreatitis/choledocholithiasis -MRCP showing cholecystis. s/p ERCP. Converted to open choley. Gram+ cocci on culture; narrow abx on these results. Afebrile, no leukocytosis. -can DC abx before discharge #Hypoglycemia: resolved, now eating #Hyperbilirubinemia: due to above, trending down #Diet:ADAT Inpatient admission for serial abdominal exams, IV abx Discussed with Dr. Menon Subjective: passing flatus. Mild abd pain with cough Objective: Vital Signs Temp Pulse Resp BP Pulse Ox 36.8 C 70 12 115/63 95 08/03/18 08:00 08/03/18 08:00 08/03/18 08:00 08/03/18 08:00 08/03/18 08:00 Microbiology 08/01/18 14:48 Gram Stain - Final Gallbladder - Eswab Laboratory Results 08/03/18 04:45 08/02/18 04:35 08/02/18 08/03/18 08/04/18 05:59 05:59 05:59 Intake Total 1950 300 Output Total 250 Balance 1700 300 PT 14.4 SEC (12.0-15.0) 07/30/18 05:07 INR 1.10 (0.83-1.16) 07/30/18 05:07 - Physical Exam Constitutional: no apparent distress Eyes: PERRL Ears, Nose, Mouth, Throat: moist mucous membranes Cardiovascular: regular rate and rhythym, no murmur, rub, or gallop Respiratory: no respiratory distress, no rales or rhonchi Gastrointestinal: normoactive bowel sounds, no palpable masses, tenderness ( min TTP over incision), No distension Skin: warm Musculoskeletal: full muscle strength Neurologic: AAOx3, CN II-XII Intact Psychiatric: interacting appropriately ICD10 Worksheet Patient Problems: Problems Problem Status Onset Acute gallstone pancreatitis Acute Choledocholithiasis with acute cholecystitis Acute
[2018-08-04] MEDS: AMPICILLIN/SULBACTAM 3 GM in NS 100 ML IV SCH (05:23)
[2018-08-04] MEDS ORDERED: LACTULOSE 20 GM/30 ML UDCUP PO PRN (07:01)
[2018-08-04] MEDS ORDERED: BISACODYL 10 MG SUPP PR PRN (07:01)
[2018-08-04] MEDS ORDERED: MAGNESIUM HYDROXIDE 30 ML UDCUP PO PRN (07:01)
[2018-08-04] MEDS ORDERED: POLYETHYLENE GLYCOL 3350 17 GM PKT PO PRN (07:01)
--- NOTE | 2018-08-04 07:17 | SOAPPROG ---
SOAP Progress Note Assessment/Plan: Assessment: choledocholithiasis/chronic and acute cholecystitis with necrosis s/p ERCP, lap shanita post op ileus-resolving Day #7 Unasyn/cultures no growth at 48 hours Plan: DC Unasyn bowel program discharge later today or tomorrow 07/31/18 14:24 08/03/18 07:00 08/04/18 07:15 Subjective: resting comfortably passing flatus/no BM yet tolerating diet Objective: Vital Signs Temp Pulse Resp BP Pulse Ox 36.7 C 76 16 108/70 95 08/04/18 03:28 08/04/18 03:28 08/04/18 03:28 08/04/18 03:28 08/04/18 03:28 Microbiology 08/01/18 14:48 Gram Stain - Final Gallbladder - Eswab Laboratory Results 08/03/18 04:45 08/02/18 04:35 08/03/18 08/04/18 08/05/18 05:59 05:59 05:59 Intake Total 1000 Balance 1000 PT 14.4 SEC (12.0-15.0) 07/30/18 05:07 INR 1.10 (0.83-1.16) 07/30/18 05:07 - Pending Discharge Pending Discharge Within 24 Hours: Yes Pending Discharge Date: 08/05/18 Pending Discharge Time: 11:00 Physical Exam - Physical Exam General Appearance: alert, no apparent distress Abdomen: normal bowel sounds, non-tender, soft, other (incision healing without signs of infectiion/On-Q catheters removed) ICD10 Worksheet Patient Problems: Problems Problem Status Onset Acute gallstone pancreatitis Acute Choledocholithiasis with acute cholecystitis Acute
[2018-08-04 08:01] VITALS: BP 113/69
[2018-08-04] MEDS: ENOXAPARIN 40 MG/0.4 ML SYR SC SCH (08:36)
[2018-08-04] MEDS ORDERED: SENNOSIDES/DOCUSATE SODIUM TAB PO SCH (09:00)
--- NOTE | 2018-08-04 10:13 | GDS ---
ALL DIAGNOSES: 1. Acute cholecystitis. 2. Choledocholithiasis. 3. Gallstone pancreatitis. 4. Hyperbilirubinemia. HOSPITAL COURSE: This is a 63-year-old man admitted with abdominal pain. Found to have pancreatitis, choledocholithiasis as well as cholecystitis. He underwent an ERCP with stone removal. He subsequently underwent a cholecystectomy with pathology showing acute and chronic inflammation with necrosis. He was treated with intravenous antibiotics. He had a mild postop ileus. He has clinically improved significantly. He has had 1 bowel movement this morning which he describes as dark and somewhat greenish. He is eating and tolerating full meal, ambulating, has not required any narcotic pain medication. He has been seen by Dr. Menon who agrees that he is ready for discharge. He has completed a course of antibiotics. I do not feel that he needs any further antibiotics. I have warned him that his bowel movement should return to normal very soon. His pain should improve. He should continue to eat well. He should follow up with Dr. Menon in 3-4 days postop. He is not do any heavy lifting in the meantime. He understands all this. FOLLOWUP: Dr. Menon in 1 week. BILLING: I spent more than 30 minutes on the day of discharge coordinating care. /[id number]/MODL MTDD
== END 2018-08-04 11:38 | disposition home or self-care (01) | DRG 414 ==
LOC: F3N 18:07 → F3E 08-01 14:29
PROVIDERS: ADMIT Family Medicine; ATTEND Family Medicine
PROC: 0FC98ZZ Extirpation of Matter from Common Bile Duct, Via Natural or Artificial Opening Endoscopic (ICD-10-PCS; 2018-07-31)
PROC: 0FT40ZZ Resection of Gallbladder, Open Approach (ICD-10-PCS; principal; 2018-08-01 14:00)
DX: K80.42 Calculus of bile duct with acute cholecystitis without obstruction (principal); K85.10 Biliary acute pancreatitis without necrosis or infection; K91.89 Other postprocedural complications and disorders of digestive system; E86.9 Volume depletion, unspecified; Z53.31 Laparoscopic surgical procedure converted to open procedure
CPT/HCPCS: 96374; J0295; J1610; J1650; J2250; J2270; J2405; J2704; J2765; J3010; Q9961